=== PATIENT | male | born 1955 | race Caucasian/White ===

== ENCOUNTER 2017-07-18 09:55 | Inpatient (IN) ==
[2017-07-18] MEDS ORDERED: LOPERAMIDE 2 MG CAPSULE PO PRN ×2 (13:19)
[2017-07-18] MEDS ORDERED: BENZTROPINE 2 MG/2 ML AMP IV PRN (13:19)
[2017-07-18] MEDS ORDERED: ALPRAZolam 0.25 MG TABLET PO PRN (13:19)
[2017-07-18] MEDS ORDERED: MAGNESIUM HYDROXIDE SUSP 30 ML UDCUP PO PRN (13:19)
[2017-07-18] MEDS ORDERED: ALUMINUM/MAGNES/SIMETH MAX STR 30 ML UDCUP PO PRN (13:19)
[2017-07-18] MEDS ORDERED: guaiFENesin 200 MG/10 ML UDCUP PO PRN (13:19)
[2017-07-18] MEDS ORDERED: ONDANSETRON 4 MG/2 ML VIAL IV PRN (13:19)
[2017-07-18] MEDS ORDERED: traMADol 50 MG TABLET PO PRN (13:19)
[2017-07-18] MEDS ORDERED: MYLANTA/LIDO VISC 2:1 300 ML BOTTLE SWISH/SWAL PRN (13:19)
[2017-07-18] MEDS ORDERED: MYLANTA/LIDO VISC 2:1 300 ML BOTTLE SWISH/SPIT PRN (13:19)
[2017-07-18] MEDS ORDERED: ACETAMINOPHEN 325 MG TABLET PO PRN (13:19)
[2017-07-18] MEDS ORDERED: chlorproMAZINE INJ 50 MG in SODIUM CHLORIDE 0.9% 100 ML IV PRN (13:19)
[2017-07-18] MEDS ORDERED: chlorproMAZINE INJ 25 MG in SODIUM CHLORIDE 0.9% 100 ML IV PRN (13:19)
[2017-07-18] MEDS ORDERED: LACTULOSE 20 GM/30 ML UDCUP PO PRN (13:19)
[2017-07-18] MEDS ORDERED: chlorproMAZINE 25 MG TABLET PO PRN (13:19)
[2017-07-18] MEDS ORDERED: TEMAZEPAM 7.5 MG CAPSULE PO PRN (13:19)
[2017-07-18] MEDS ORDERED: PROMETHAZINE INJ 25 MG in SODIUM CHLORIDE 0.9% 50 ML IV PRN (13:19)
[2017-07-18] MEDS ORDERED: diphenhydrAMINE CAP 25 MG CAPSULE PO PRN (13:19)
[2017-07-18 14:00] LABS: Basophils % 0.1 % (0.0-0.8); Eosinophils # 0.3 10*3/uL (0.0-0.87); Eosinophils % 2.7 % (0.00-10.9); Hematocrit 40.3 VOL% (42.0-52.0); Hemoglobin 13.6 GM/DL (14.0-18.0); Immature Granulocytes % 1.6 %; Immature Granulocytes Absolute 0.15 #; Lymphocytes # 2.1 10*3/uL (1.4-4.0); Lymphocytes % 23.4 % (21.2-54.2); Mean Corpuscular HGB Conc 33.7 GM/DL (32-36); Mean Corpuscular Hemoglobin 28 PG (27-34); Mean Corpuscular Volume 82.9 FL (87-102); Mean Platelet Volume 9.4 FL (9.6-12.0); Monocytes # 0.8 10*3/uL (0.11-0.8); Monocytes % 8.4 % (1.7-12.7); Neutrophils # 5.8 10*3/uL (1.4-7.4); Neutrophils % 63.8 % (38.7-73.9); Platelet Count 298 T/CUMM (130-400); Red Blood Count 4.86 MC/CUMM (3.8-5.5); Red Cell Distribution Width 12.7 % (9.3-17.3); White Blood Count 9.1 T/CUMM (4-12)
[2017-07-18 14:36] LABS: Albumin 2.8 G/DL (3.4-5.0); Bilirubin,Total 0.5 MG/DL (0.2-1.0); Osmolality,Calculated 285.4 MOS/KG (273-304); Potassium 3.6 MMOL/L (3.5-5.1); Total Protein 5.5 G/DL (6.4-8.3); Uric Acid 4.7 MG/DL (3.5-7.2)
[2017-07-18 15:14] LABS: Apearance,Urine CLEAR (Clear); Bilirubin,Urine Negative (Negative); Blood, Urine Negative (Negative); Glucose,Urine (UA) Negative (Negative); Ketones,Urine Negative (Negative); Nitrite,Urine Negative (Negative); Protein,Urine Negative; RBC,Urine <1 /HPF (0-4); Urine Color Yellow (Yellow); Urine Specific Gravity 1.013 (1.001-1.035); Urine Urobilinogen < 2.0 EU/DL (0.2-1.0); WBC,Urine <1 /HPF (0-6)
[2017-07-18] MEDS: FLUCONAZOLE 200 MG TABLET PO SCH (15:41)
[2017-07-18] MEDS: AZITHROMYCIN INJ 500 MG in SODIUM CHLORIDE 0.9% 250 ML IV SCH (15:41)
[2017-07-18] MEDS: FONDAPARINUX 2.5 MG/0.5 ML SYRINGE SUBCUT SCH (15:42)
[2017-07-18] MEDS ORDERED: methylPREDNISolone SOD SUC 40 MG/1 ML VIAL IV SCH (17:00)
[2017-07-18] MEDS: PIPERACILLIN/TAZOBACTAM 3,375 MG in SODIUM CHLORIDE 0.9% 100 ML IV SCH ×2 (17:01→23:31)
[2017-07-18] MEDS ORDERED: ALBUTEROL/IPRATROPIUM 3 ML NEB RESP TX PRN (19:06)
[2017-07-18] MEDS: ALBUTEROL/IPRATROPIUM 3 ML NEB RESP TX SCH (20:18)
[2017-07-18] MEDS: MONTELUKAST 10 MG TABLET PO SCH (20:43)
[2017-07-18] MEDS ORDERED: NAPROXEN 500 MG TABLET PO PRN (23:02)
[2017-07-19] MEDS: methylPREDNISolone SOD SUC 40 MG/1 ML VIAL IV SCH ×3 (01:48→19:17)
[2017-07-19] MEDS: ALBUTEROL/IPRATROPIUM 3 ML NEB RESP TX SCH ×4 (07:05→19:34)
[2017-07-19] MEDS ORDERED: PANTOPRAZOLE 40 MG TABLET PO SCH (09:00)
[2017-07-19] MEDS ORDERED: NON-FORMULARY MEDICATION PO SCH (09:00)
[2017-07-19] MEDS: FLUTICASONE 50 MCG NASAL SPRAY 16 GM BOTTLE BOTH NARES SCH (09:11)
[2017-07-19] MEDS: MONTELUKAST 10 MG TABLET PO SCH ×2 (09:12→21:31)
[2017-07-19] MEDS: PANTOPRAZOLE 40 MG TABLET PO SCH (09:14)
[2017-07-19] MEDS: FLUCONAZOLE 200 MG TABLET PO SCH (09:14)
[2017-07-19] MEDS: ASPIRIN EC 81 MG TABLET PO SCH (09:15)
[2017-07-19] MEDS: LOSARTAN/HCTZ 50-12.5 MG TABLET PO SCH (09:15)
[2017-07-19] MEDS: CARVEDILOL 6.25 MG TABLET PO SCH ×2 (09:15→21:31)
[2017-07-19] MEDS: hydrALAZINE 25 MG TABLET PO SCH ×2 (09:16→21:31)
[2017-07-19] MEDS: PIPERACILLIN/TAZOBACTAM 3,375 MG in SODIUM CHLORIDE 0.9% 100 ML IV SCH ×2 (09:17→18:24)
[2017-07-19] MEDS: FONDAPARINUX 2.5 MG/0.5 ML SYRINGE SUBCUT SCH (15:14)
[2017-07-19] MEDS: AZITHROMYCIN INJ 500 MG in SODIUM CHLORIDE 0.9% 250 ML IV SCH (15:14)
[2017-07-20] MEDS: PIPERACILLIN/TAZOBACTAM 3,375 MG in SODIUM CHLORIDE 0.9% 100 ML IV SCH ×2 (01:48→11:35)
[2017-07-20] MEDS: methylPREDNISolone SOD SUC 40 MG/1 ML VIAL IV SCH ×2 (01:49→11:34)
[2017-07-20] MEDS: ALBUTEROL/IPRATROPIUM 3 ML NEB RESP TX SCH ×3 (07:20→14:14)
[2017-07-20] MEDS: FLUCONAZOLE 200 MG TABLET PO SCH (08:31)
[2017-07-20] MEDS: LOSARTAN/HCTZ 50-12.5 MG TABLET PO SCH (08:32)
[2017-07-20] MEDS: CARVEDILOL 6.25 MG TABLET PO SCH (08:32)
[2017-07-20] MEDS: hydrALAZINE 25 MG TABLET PO SCH (08:32)
[2017-07-20] MEDS: MONTELUKAST 10 MG TABLET PO SCH (08:32)
[2017-07-20] MEDS: PANTOPRAZOLE 40 MG TABLET PO SCH (08:32)
[2017-07-20] MEDS: ASPIRIN EC 81 MG TABLET PO SCH (08:32)
[2017-07-20] MEDS: FLUTICASONE 50 MCG NASAL SPRAY 16 GM BOTTLE BOTH NARES SCH (08:36)
[2017-07-20 13:14] VITALS: BP 131/63
[2017-07-20] MEDS: FONDAPARINUX 2.5 MG/0.5 ML SYRINGE SUBCUT SCH (14:12)
== END 2017-07-20 15:10 | disposition home or self-care (01) | DRG 194 ==
LOC: MERGE 12:06 → N.4E 12:06
PROVIDERS: ADMIT Specialist; ATTEND Specialist

== ENCOUNTER 2020-07-18 14:24 | Observation (INO) ==
[2020-07-18 15:01] LABS: Basophils % 0.2 % (0.0-0.8); Eosinophils # 0.2 10*3/uL (0.0-0.87); Eosinophils % 1.8 % (0.00-10.9); Hematocrit 35.6 VOL% (42.0-52.0); Hemoglobin 11.2 GM/DL (14.0-18.0); Immature Granulocytes % 0.5 %; Immature Granulocytes Absolute 0.04 #; Lymphocytes # 0.8 10*3/uL (1.4-4.0); Lymphocytes % 10.2 % (21.2-54.2); Mean Corpuscular HGB Conc 31.5 GM/DL (32-36); Mean Corpuscular Volume 81.5 FL (87-102); Mean Platelet Volume 9.5 FL (9.6-12.0); Monocytes % 3.8 % (1.7-12.7); Neutrophils % 83.5 % (38.7-73.9); Platelet Count 340 T/CUMM (130-400); Red Blood Count 4.37 MC/CUMM (3.8-5.5); Red Cell Distribution Width 13.5 % (9.3-17.3); White Blood Count 8.1 T/CUMM (4-12)
[2020-07-18 15:22] LABS: Albumin 3.1 G/DL (3.4-5.0); Calcium 8.8 MG/DL (8.5-10.1); Osmolality,Calculated 279.1 MOS/KG (273-304); Potassium 4.1 MMOL/L (3.5-5.1); Total Protein 6.9 G/DL (6.4-8.2)
[2020-07-18] MEDS ORDERED: ASPIRIN 325 MG TABLET PO STA (18:11)
[2020-07-18] MEDS ORDERED: ONDANSETRON 4 MG/2 ML VIAL ONE (18:15)
[2020-07-18] MEDS ORDERED: MORPHINE 4 MG/1 ML VIAL ONE (18:16)
[2020-07-18] MEDS ORDERED: MORPHINE 4 MG/1 ML VIAL IV STA (18:19)
[2020-07-18] MEDS ORDERED: NITROGLYCERIN 2% OINT 1 INCH/GM PACK TOP ONE (18:23)
[2020-07-18] MEDS ORDERED: NITROGLYCERIN 2% OINT 1 INCH/GM PACK TOP STA (18:25)
[2020-07-18] MEDS ORDERED: ONDANSETRON 4 MG/2 ML VIAL IV STA (18:25)
[2020-07-18 18:42] LABS: INR 1.1; PT Patient Result 11.6 SECS (9.8-11.9)
[2020-07-18] MEDS ORDERED: HEPARIN 1,000 UNIT/1 ML VIAL IV STA (18:59)
[2020-07-18] MEDS ORDERED: HEPARIN 5,000 UNIT/1 ML VIAL ONE (19:02)
[2020-07-18] MEDS ORDERED: MAGNESIUM SULF RIDER 2 GM in PREMIX 1 EACH IV PRN (19:35)
[2020-07-18] MEDS ORDERED: MAGNESIUM SULF RIDER 4 GM in PREMIX 1 EACH IV PRN (19:35)
[2020-07-18] MEDS ORDERED: IBUPROFEN 800 MG TABLET PO SCH (20:00)
[2020-07-18] MEDS ORDERED: NON-FORMULARY MEDICATION (Albuterol Sulfate [Ventolin Hfa] 90 MCG/PUFF HFA aerosol inhaler INH PRN (21:30)
[2020-07-18] MEDS ORDERED: METHYLCELLULOSE PO PRN (21:40)
[2020-07-18] MEDS ORDERED: ALBUTEROL 2.5 MG/3 ML NEB RESP TX PRN (21:42)
[2020-07-18] MEDS: COLCHICINE 0.6 MG CAPSULE PO SCH (22:08)
[2020-07-18] MEDS: MORPHINE 4 MG/1 ML VIAL IV PRN (22:08)
[2020-07-19] MEDS ORDERED: PSYLLIUM POWDER 3.7 GM/PACK PO PRN (06:37)
[2020-07-19] MEDS: MORPHINE 4 MG/1 ML VIAL IV PRN (07:24)
[2020-07-19] MEDS: MONTELUKAST 10 MG TABLET PO SCH (08:32)
[2020-07-19] MEDS: NEBIVOLOL 10 MG TABLET PO SCH (08:33)
[2020-07-19] MEDS: ASPIRIN EC 81 MG TABLET PO SCH (08:33)
[2020-07-19] MEDS: PANTOPRAZOLE 40 MG TABLET PO SCH (08:33)
[2020-07-19] MEDS: COLCHICINE 0.6 MG CAPSULE PO SCH (08:38)
[2020-07-19] MEDS ORDERED: hydroCHLOROthiazide 12.5 MG CAPSULE PO SCH (09:00)
[2020-07-19] MEDS ORDERED: TAMSULOSIN 0.4 MG CAPSULE PO SCH ×2 (09:00→21:00)
[2020-07-19] MEDS ORDERED: LOSARTAN 50 MG TABLET PO SCH (09:00)
[2020-07-19] MEDS ORDERED: ASPIRIN CHEW 81 MG TABLET PO SCH (09:00)
[2020-07-19] MEDS ORDERED: methylPREDNISolone SOD SUC 125 MG/2 ML VIAL IV ONE (09:11)
[2020-07-19] MEDS ORDERED: KETOROLAC 30 MG/1 ML VIAL IV ONE (09:11)
[2020-07-19] MEDS: KETOROLAC 15 MG/1 ML VIAL IV SCH ×4 (09:23→22:41)
[2020-07-19] MEDS: methylPREDNISolone 4 MG TABLET PO SCH ×2 (12:02→20:14)
[2020-07-19] MEDS: DOXYCYCLINE HYCLATE 100 MG CAPSULE PO SCH (20:14)
[2020-07-20] MEDS: KETOROLAC 15 MG/1 ML VIAL IV SCH (05:01)
[2020-07-20 05:06] LABS: Basophils % 0.1 % (0.0-0.8); Hematocrit 32.5 VOL% (42.0-52.0); Hemoglobin 10.1 GM/DL (14.0-18.0); Immature Granulocytes % 0.4 %; Immature Granulocytes Absolute 0.05 #; Lymphocytes # 0.9 10*3/uL (1.4-4.0); Lymphocytes % 6.4 % (21.2-54.2); Mean Corpuscular HGB Conc 31.1 GM/DL (32-36); Mean Platelet Volume 10.1 FL (9.6-12.0); Monocytes % 4.9 % (1.7-12.7); Neutrophils % 88.2 % (38.7-73.9); Platelet Count 396 T/CUMM (130-400); Red Blood Count 4.01 MC/CUMM (3.8-5.5); Red Cell Distribution Width 13.1 % (9.3-17.3); White Blood Count 13.7 T/CUMM (4-12)
[2020-07-20 05:21] LABS: % Iron Saturation 7.1 % (18-50); Calcium 9.5 MG/DL (8.5-10.1); Ferritin 428.7 ng/ml (26-388); Potassium 4.3 MMOL/L (3.5-5.1)
[2020-07-20] MEDS ORDERED: SODIUM CHLORIDE 0.9% 1,000 ML IV SCH (07:30)
[2020-07-20] MEDS: methylPREDNISolone 4 MG TABLET PO SCH ×2 (09:51→12:46)
[2020-07-20] MEDS: ASPIRIN EC 81 MG TABLET PO SCH (09:51)
[2020-07-20] MEDS: NEBIVOLOL 10 MG TABLET PO SCH (09:51)
[2020-07-20] MEDS: PANTOPRAZOLE 40 MG TABLET PO SCH (09:51)
[2020-07-20] MEDS: MONTELUKAST 10 MG TABLET PO SCH (09:51)
[2020-07-20] MEDS: DOXYCYCLINE HYCLATE 100 MG CAPSULE PO SCH (09:51)
[2020-07-20 12:45] VITALS: BP 123/65
[2020-07-20] MEDS ORDERED: FERROUS SULFATE 325 MG TABLET PO SCH (15:00)
[2020-07-22 10:17] LABS: Anti-Nuclear Antibody Pattern Homogeneous
[2020-07-22 13:02] LABS: Double Stranded DNA Antibodies < 25.0 IU/ML
[2020-07-22 13:08] LABS: Anti SS-A Antibodies < 16 EU/ML
== END 2020-07-20 14:06 | disposition home or self-care (01) ==
LOC: N.EDINP 14:24 → N.ED 14:24 → N.EDINP 21:12 → N.TELEN 21:28
PROVIDERS: ADMIT Internal Medicine Cardiovascular Disease; ATTEND Internal Medicine Cardiovascular Disease